=== PATIENT | female | born 1955 | race African-American/Black ===

== ENCOUNTER 2018-07-23 08:54 | Inpatient (IN) ==
--- NOTE | 2018-07-18 17:41 | EKG Report ---
Test Performed on : 07/18/2018 5:27:46 PM Test Reason : PAT Blood Pressure : / mmHG Vent. Rate : 078 BPM Atrial Rate : 078 BPM P-R Int : 168 ms QRS Dur : 080 ms QT Int : 412 ms P-R-T Axes : 046 056 021 degrees QTc Int : 469 ms Normal sinus rhythm. Possible Left atrial enlargement Borderline ECG When compared with ECG of 17-JUN-2016 18:58, No significant change was found Confirmed by Venancio AGUIAR, Ar Marie ([id number]) on 07/19/2018 8:47:00 AM
[2018-07-18 17:55] LABS: URINE SOURCE CLEAN CATCH
[2018-07-18 18:07] LABS: BASO# 0.01 X1000 (0.0-0.2); BASO% 0.1 % (0.0-0.8); EOS# 0.08 X1000 (0.0-0.7); EOS% 1.1 % (0.0-10.0); HEMOGLOBIN A1C 7.5 % (4.8-6.0); IMM GRAN# 0.02 X1000 (0.0-0.04); IMM GRAN% 0.3 % (0.0-0.5); LYMPH# 2.45 X1000 (1.2-3.4); LYMPH% 33.4 % (20.5-51.1); MCH 30.2 PG (27-31); MCHC 32.4 g/dL (33-37); MCV 93.2 FL (81-99); MONO% 5.5 % (1.7-9.3); MPV 11.3 FL (7.4-10.4); NEUT# 4.37 X1000 (1.4-6.5); NEUT% 59.6 % (42.2-75.2); PLT 211 X1000 (130-400); RBC 3.97 XMIL (4.2-5.4); RDW 12.1 % (11.5-14.5); WBC 7.33 X1000 (4.8-10.8)
[2018-07-18 18:10] LABS: BILIRUBIN URINE NEGATIVE (NEGATIVE); BLOOD URINE NEGATIVE (NEGATIVE); COLOR YELLOW; GLUCOSE URINE NEGATIVE (NEGATIVE); KETONE URINE NEGATIVE (NEGATIVE); LEUKOCYTES URINE NEGATIVE (NEGATIVE); NITRITE URINE NEGATIVE (NEGATIVE); PH URINE 5.5; PROTEIN URINE 30 mg/dL (NEGATIVE); SP GRAVITY URINE 1.037; TURBIDITY URINE CLEAR (CLEAR); UROBILINOGEN URINE 2 mg/dL (NORMAL)
[2018-07-18 18:11] LABS: UR EPITHELIAL CELLS <10 /HPF (<10); URINE BACTERIA NEGATIVE /HPF; URINE RBC <10 /HPF (<10); URINE WBC <10 /HPF (<10)
[2018-07-18 18:12] LABS: INR 0.96; PROTIME 13.6 Seconds (11.0-16.0); PTT 28.6 Seconds (22.3-41.8)
[2018-07-18 18:48] LABS: AGAP 10; BUN 18 mg/dL (8-22); CALCIUM 8.9 mg/dL (8.8-10.2); CHLORIDE 101 mmol/L (98-107); COSMO 281; CREATININE 1.1 mg/dL (0.5-0.9); ESTIMATED GFR > 60; GLUCOSE 196 mg/dL (70-104); POTASSIUM 4.5 mmol/L (3.5-5.1); SODIUM 137 mmol/L (136-145); TCO2 26 mmol/L (25-35)
[~2018-07-23 08:54] MED LIST: DIPRIVAN 1% ONE; FENTANYL ONE; VERSED ONE
[2018-07-23] MEDS ORDERED: LYRICA ONE (09:24)
[2018-07-23] MEDS ORDERED: COLACE ONE (09:24)
[2018-07-23] MEDS ORDERED: REGLAN ONE (09:24)
[2018-07-23] MEDS ORDERED: PEPCID ONE (09:24)
[2018-07-23] MEDS ORDERED: KEFZOL 1 GM/D5W 2 GM/100 ML IVPB ONE (09:25)
[2018-07-23] MEDS ORDERED: CELEBREX ONE (09:25)
[2018-07-23] MEDS ORDERED: LR 1,000 ML ONE (09:25)
[2018-07-23] MEDS ORDERED: TORADOL ONE (10:16)
[2018-07-23] MEDS ORDERED: MARCAINE 0.25% PF ONE (10:16)
[2018-07-23] MEDS ORDERED: SODIUM CHLORIDE 0.9% ONE (10:16)
[2018-07-23] MEDS ORDERED: VANCOMYCIN ONE (10:16)
[2018-07-23] MEDS ORDERED: CYKLOKAPRON 1,000 MG/NS 1,000 MG/100 ML IVPB ONE ×2 (10:16→10:17)
[2018-07-23] MEDS ORDERED: DURAMORPH ONE (10:16)
[2018-07-23] MEDS ORDERED: NEOSPORIN G.U. IRRIGANT ONE (10:17)
[2018-07-23] MEDS ORDERED: EXPAREL 1.3% ONE (10:17)
[2018-07-23] MEDS ORDERED: DIPRIVAN 1% ONE (11:26)
[2018-07-23] MEDS ORDERED: FENTANYL ONE (11:27)
[2018-07-23] MEDS ORDERED: ZOFRAN ONE (11:40)
[2018-07-23] MEDS ORDERED: OFIRMEV 1000 MG/ISOTONIC SOLN 1,000 MG/100 ML BOTTLE ONE (11:40)
[2018-07-23 12:17] LABS: URINE SOURCE CATH
[2018-07-23 12:29] LABS: BILIRUBIN URINE NEGATIVE (NEGATIVE); BLOOD URINE NEGATIVE (NEGATIVE); COLOR YELLOW; GLUCOSE URINE 300 mg/dL (NEGATIVE); KETONE URINE NEGATIVE (NEGATIVE); LEUKOCYTES URINE NEGATIVE (NEGATIVE); NITRITE URINE NEGATIVE (NEGATIVE); PH URINE 5.5; PROTEIN URINE NEGATIVE (NEGATIVE); SP GRAVITY URINE 1.014; TURBIDITY URINE CLEAR (CLEAR); UROBILINOGEN URINE NORMAL (NORMAL)
[2018-07-23 12:30] LABS: UR EPITHELIAL CELLS <10 /HPF (<10); URINE BACTERIA NEGATIVE /HPF; URINE RBC <10 /HPF (<10); URINE WBC <10 /HPF (<10)
--- NOTE | 2018-07-23 13:31 | OPERATIVE NOTE ---
PROCEDURE DATE: 07/23/2018 PREOPERATIVE DIAGNOSIS: Right knee degenerative joint disease. POSTOPERATIVE DIAGNOSIS: Right knee degenerative joint disease. PROCEDURE: Right total knee arthroplasty using [facility] size 3 femoral component, a size 4 tibial baseplate, a 12-mm articular insert, and a 32 mm patellar component. ANESTHESIA: Spinal. SURGEON: Sean Tejeda MD. CLINICAL INFORMATICS STRATEGIST: JOSEF Wade, who was present throughout the case and whose assistance was critical for exposure, preparing the bone ends for implantation, assisting with the implantation and the decision making as well as wound closure. Her assistance greatly reduced anesthesia and operative time and improved the efficiency of the OR. BLOOD LOSS: Minimal. DRAINS: Hemovac x1. DETAILS OF OPERATION: Patient was brought to the operative suite and placed in supine position. After successful administration of spinal anesthesia, a well-padded tourniquet was placed on right proximal thigh. Right lower extremity was prepped and draped in usual fashion. The leg was exsanguinated. Tourniquet insufflated to 350 torr. A longitudinal incision was made beginning at the superior pole of patella and extended distally to tibial tuberosity. Full-thickness skin flaps were elevated medially and laterally. A medial arthrotomy was made. The medial capsule was elevated off the medial tibial plateau. ACL, PCL, medial meniscus, lateral meniscus were excised. A drill was entered in the center of distal femur. Intramedullary guide was placed. Distal cutting block was then pinned in place. Distal cut made with the oscillating saw. Attention was then directed to the tibia. A drill was entered into the tibia and the line was checked with drop estrellita, referencing off the anterior cortex, tibia and the second ray of the foot and taking 3 mm off of the low side of the tibia which in this case was medially. The tibial cutting block was pinned in place. The articular surface of the tibial plateau was removed with the oscillating saw. The extension gap was measured at 12 mm. The flexion gap was then set to 21 mm to allow for the thickness of the posterior condyles of the femoral component. Once this was set, the femur was sized to size 3. A size 3 cutting block was pinned in place. Anterior cuts, chamfer cuts, and posterior condylar cuts were made with the oscillating saw. Marginal osteophytes were removed with the rongeur. A box cutting block was pinned in place. A box cut was made a box osteotome and oscillating saw. Posterior condyle osteophytes removed with the curved osteotome and rongeur. Attention was then directed to the tibia. The tibia was sized to a size 4. A size 4 guide was used for the fin punch. The tibial trial, femoral trial and 12 mm articular insert were placed and taken through range of motion and found to have excellent alignment, balancing and range of motion. Attention was then directed to patella. 9 mm of the articular surface patella removed with oscillating saw. Patella was measured to a size 32. A size 32 guide was used drill peg holes. The lateral facet was chamfered 30 to 45 degrees. Patellar trial was placed taken through range of motion and found to have excellent patellar tracking. All trials were then removed. Knee was copiously irrigated and dried, being certain all bone debris was removed. The tibial component, femoral component and patellar component were cemented into place. Excess cement being removed with a [place]. Once the cement had hardened, excess cement was again removed with an osteotome. Knee was again copiously irrigated and dried, being certain all bone and cement debris were removed with a trial. The articular insert was removed. The knee was copiously infiltrated with Exparel, including posterior capsule, anterior capsule, medial and lateral collateral ligaments, anterior musculature, and subcutaneous tissue. The definitive 12 mm articular insert was then locked into place. A drain was placed exiting superolaterally and buried in the lateral gutter. The knee was again copiously irrigated with normal saline containing irrigant and Vashe irrigation. The tourniquet was deflated. Hemostasis was obtained with electrocautery. The medial arthrotomy was closed with 0 V-Loc. The skin edges approximated with 2-0 Vicryl, skin was closed with Prineo and a sterile dressing was applied. The patient tolerated the procedure well without complication. At the end the procedure, all counts were correct x2. The patient was transferred to the recovery room in stable condition. cc: Sean Tejeda MD
[2018-07-23] MEDS ORDERED: NS 1,000 ML ONE (13:41)
--- NOTE | 2018-07-23 14:00 | Diag Imaging Result Doc PS360 ---
KNEE 1-2 VIEWS-RIGHT - 07/23/2018 INDICATION: post op TECHNIQUE: Two views COMPARISON: 01/21/2018 FINDINGS: There has been right total knee arthroplasty with patellar resurfacing. Alignment is anatomic. No hardware fracture or loosening. IMPRESSION: No complication. Electronically signed by Vinod Jackson 07/23/2018 1:58 PM
[2018-07-23] MEDS ORDERED: ZOFRAN IV PRN (15:15)
[2018-07-23] MEDS ORDERED: MILK OF MAGNESIA PO PRN (15:15)
[2018-07-23] MEDS ORDERED: OXY IR PO PRN (15:15)
[2018-07-23] MEDS ORDERED: MORPHINE IV PRN ×3 (15:15)
[2018-07-23] MEDS ORDERED: MIRALAX PO PRN (15:25)
[2018-07-23] MEDS ORDERED: ALBUTEROL NEB INH PRN (15:25)
[2018-07-23] MEDS: GLUCOPHAGE PO SCH (16:42)
[2018-07-23] MEDS: TYLENOL PO SCH ×2 (16:42→22:52)
[2018-07-23] MEDS: ULTRAM PO SCH (16:43)
[2018-07-23] MEDS: NS 1,000 ML IV SCH (16:47)
[2018-07-23] MEDS: KEFZOL 2 GM/D5W 2 GM/50 ML IVPB IV SCH ×2 (17:56→18:44)
[2018-07-23] MEDS: OXY IR PO PRN ×2 (18:57→22:41)
[2018-07-23] MEDS: ADVAIR 250/50 DISKUS INH SCH (20:14)
[2018-07-23] MEDS: DESYREL PO SCH (22:52)
[2018-07-23] MEDS: AMBIEN PO SCH (22:52)
[2018-07-23] MEDS: CELEBREX PO SCH (22:52)
[2018-07-23] MEDS: ZANTAC PO SCH (22:53)
[2018-07-23] MEDS: SEROQUEL PO SCH (22:53)
[2018-07-23] MEDS: COLACE PO SCH (22:53)
[2018-07-23] MEDS: PERIDEX MT SCH (22:54)
[2018-07-24] MEDS: ULTRAM PO SCH ×5 (00:20→22:42)
[2018-07-24] MEDS: KEFZOL 2 GM/D5W 2 GM/50 ML IVPB IV SCH (02:35)
[2018-07-24] MEDS: NS 1,000 ML IV SCH ×2 (02:39→08:13)
[2018-07-24 06:01] LABS: HEMATOCRIT 33.7 % (37.0-47.0); HEMOGLOBIN 10.7 g/dL (12.0-16.0)
[2018-07-24 06:18] LABS: AGAP 10; BUN 13 mg/dL (8-22); CALCIUM 7.6 mg/dL (8.8-10.2); CHLORIDE 103 mmol/L (98-107); COSMO 286; CREATININE 0.9 mg/dL (0.5-0.9); ESTIMATED GFR > 60; GLUCOSE 278 mg/dL (70-104); POTASSIUM 4.9 mmol/L (3.5-5.1); SODIUM 138 mmol/L (136-145); TCO2 25 mmol/L (25-35)
[2018-07-24] MEDS: LINZESS PO SCH (06:34)
[2018-07-24] MEDS: PRILOSEC PO SCH (06:34)
[2018-07-24] MEDS: TYLENOL PO SCH ×4 (06:34→22:31)
--- NOTE | 2018-07-24 07:35 | DISCHARGE SUMMARY ---
ADMISSION DATE: 07/23/2018 DISCHARGE DATE: 07/24/2018 DISCHARGE DIAGNOSIS: Right knee degenerative joint disease status post right total knee arthroplasty. DISCHARGE MEDICATIONS: See discharge medication list. DISPOSITION: The patient discharged home with home health physical therapy. She is instructed to return for any signs or symptoms of infection or deep venous thrombosis. Instructed to return to see Dr. Tejeda next . HOSPITAL COURSE: On the day of admission, patient underwent a right total knee arthroplasty. Her postoperative course was unremarkable. At discharge, she is afebrile tolerating a regular diet ambulating with therapy. Her wound is clean, dry, intact without sign of infection. Her hematocrit is 33.7. Her hemoglobin is 10.7. She has had 290 out from her drain, and 100 over the last day. She is discharged home in stable condition, and instructed to follow up as described above. cc: Sean Tejeda MD [facility]
[2018-07-24] MEDS: ADVAIR 250/50 DISKUS INH SCH ×2 (07:50→20:13)
[2018-07-24] MEDS: ESTRACE PO SCH (08:10)
[2018-07-24] MEDS: CYMBALTA PO SCH (08:10)
[2018-07-24] MEDS: COLACE PO SCH ×2 (08:10→22:31)
[2018-07-24] MEDS: ZANTAC PO SCH ×2 (08:10→22:32)
[2018-07-24] MEDS: CELEBREX PO SCH ×2 (08:10→22:30)
[2018-07-24] MEDS: GLUCOPHAGE PO SCH ×2 (08:10→16:23)
[2018-07-24] MEDS: PERIDEX MT SCH ×2 (08:10→22:34)
[2018-07-24] MEDS: OXY IR PO PRN ×2 (08:11→18:26)
[2018-07-24] MEDS: NORVASC PO SCH (08:20)
[2018-07-24] MEDS ORDERED: LIPITOR PO SCH (21:00)
--- NOTE | 2018-07-24 22:07 | PROGRESS NOTE ---
DATE: 07/24/2018 SUBJECTIVE: Madeline Li is a 62-year-old female who had a left total knee the yesterday. We were going to send her home today, but she did progress well with physical therapy. We are going to keep her and change her over to a full admission. OBJECTIVE: She has pain with range of motion of her knee. Her wound is clean, dry, intact without sign of infection. ASSESSMENT: Stable total knee arthroplasty. PLAN: She is going to continue working with therapy. Hopefully, she can be discharged to home tomorrow. If not, we may need to consider rehab placement. cc: Sean Tejeda MD
[2018-07-24] MEDS: DESYREL PO SCH (22:32)
[2018-07-24] MEDS: AMBIEN PO SCH (22:33)
[2018-07-24] MEDS: SEROQUEL PO SCH (22:34)
[2018-07-25] MEDS: ULTRAM PO SCH ×2 (03:15→09:35)
[2018-07-25 05:57] LABS: HEMATOCRIT 30.2 % (37.0-47.0); HEMOGLOBIN 9.9 g/dL (12.0-16.0)
[2018-07-25] MEDS: LINZESS PO SCH (06:34)
[2018-07-25] MEDS: TYLENOL PO SCH (06:34)
[2018-07-25] MEDS: PRILOSEC PO SCH (06:34)
[2018-07-25] MEDS: ADVAIR 250/50 DISKUS INH SCH (07:28)
[2018-07-25 07:36] VITALS: BP 163/71
[2018-07-25] MEDS: PERIDEX MT SCH (09:32)
[2018-07-25] MEDS: COLACE PO SCH (09:32)
[2018-07-25] MEDS: CELEBREX PO SCH (09:32)
[2018-07-25] MEDS: GLUCOPHAGE PO SCH (09:32)
[2018-07-25] MEDS: ESTRACE PO SCH (09:32)
[2018-07-25] MEDS: ZANTAC PO SCH (09:32)
[2018-07-25] MEDS: CYMBALTA PO SCH (09:32)
[2018-07-25] MEDS: NORVASC PO SCH (09:32)
[2018-07-25] MEDS: NS 1,000 ML IV SCH (11:06)
== END 2018-07-25 15:29 | disposition home health service (06) | DRG 470 ==
LOC: OR 08:54 → 4N 08:54
PROVIDERS: ADMIT Orthopaedic Surgery; ATTEND Orthopaedic Surgery
CPT/HCPCS: 73560; 80048; 81001; 82040; 82948; 83036; 85014; 85018; 85025; 85610; 85730; 86850; 86900; 86901; 93005; 93010; 94640; 94761; 94799; 97110; 97116; 97162; 97530; A9270; C9290; J0131; J0690; J1885; J2250; J2270; J2274; J2275; J2405; J3010; J3370; J7030; J7120; Q9974; S0020; XXXXX

== ENCOUNTER 2018-10-29 05:30 | Day surgery (SDC) ==
--- NOTE | 2018-10-23 09:55 | EKG Report ---
Test Performed on : 10/23/2018 09:50:54 AM Test Reason : PAT Blood Pressure : / mmHG Vent. Rate : 086 BPM Atrial Rate : 086 BPM P-R Int : 162 ms QRS Dur : 074 ms QT Int : 380 ms P-R-T Axes : 049 062 035 degrees QTc Int : 454 ms Normal sinus rhythm. Possible Left atrial enlargement Borderline ECG When compared with ECG of 18-JUL-2018 17:27, No significant change was found Confirmed by Sophie Eisenberg MD ([id number]) on 10/28/2018 9:28:01 PM
[2018-10-23 10:30] LABS: URINE SOURCE CLEAN CATCH
[2018-10-23 10:36] LABS: BASO# 0.01 X1000 (0.0-0.2); BASO% 0.1 % (0.0-0.8); EOS# 0.16 X1000 (0.0-0.7); EOS% 2.1 % (0.0-10.0); HEMATOCRIT 38.4 % (37.0-47.0); HEMOGLOBIN 12.3 g/dL (12.0-16.0); LYMPH# 2.18 X1000 (1.2-3.4); MCH 28.9 PG (27-31); MCV 90.4 FL (81-99); MONO# 0.44 X1000 (0.11-0.59); MONO% 5.9 % (1.7-9.3); NEUT# 4.73 X1000 (1.4-6.5); NEUT% 62.9 % (42.2-75.2); PLT 241 X1000 (130-400); RBC 4.25 XMIL (4.2-5.4); RDW 13.2 % (11.5-14.5); WBC 7.52 X1000 (4.8-10.8)
[2018-10-23 10:43] LABS: BILIRUBIN URINE NEGATIVE (NEGATIVE); BLOOD URINE NEGATIVE (NEGATIVE); COLOR YELLOW; GLUCOSE URINE NEGATIVE (NEGATIVE); INR 1.02; KETONE URINE NEGATIVE (NEGATIVE); LEUKOCYTES URINE NEGATIVE (NEGATIVE); NITRITE URINE NEGATIVE (NEGATIVE); PROTEIN URINE TRACE mg/dL (NEGATIVE); PROTIME 13.5 Seconds (11.0-16.0); TURBIDITY URINE CLEAR (CLEAR); UROBILINOGEN URINE NORMAL (NORMAL)
[2018-10-23 10:44] LABS: PTT 28.8 Seconds (22.3-41.8)
[2018-10-23 10:45] LABS: UR EPITHELIAL CELLS <10 /HPF (<10); URINE BACTERIA NEGATIVE /HPF; URINE RBC <10 /HPF (<10); URINE WBC <10 /HPF (<10)
[2018-10-23 11:02] LABS: HEMOGLOBIN A1C 7.8 % (4.8-6.0)
[2018-10-23 11:17] LABS: CALCIUM 8.7 mg/dL (8.8-10.2); CREATININE 1.2 mg/dL (0.5-0.9); POTASSIUM 4.6 mmol/L (3.5-5.1)
[2018-10-29] MEDS ORDERED: CELEBREX ONE (06:12)
[2018-10-29] MEDS ORDERED: COLACE ONE (06:12)
[2018-10-29] MEDS ORDERED: REGLAN ONE (06:12)
[2018-10-29] MEDS ORDERED: PEPCID ONE (06:12)
[2018-10-29] MEDS ORDERED: LYRICA ONE (06:12)
[2018-10-29] MEDS ORDERED: LR 1,000 ML ONE (06:13)
[2018-10-29] MEDS ORDERED: KEFZOL 1 GM/D5W 2 GM/100 ML IVPB ONE (06:13)
[2018-10-29] MEDS ORDERED: DUONEB (A & A) INH ONE (06:15)
[2018-10-29] MEDS ORDERED: QUELICIN (DOSE) ONE (06:46)
[2018-10-29] MEDS ORDERED: DIPRIVAN 1% ONE (06:46)
[2018-10-29] MEDS ORDERED: XYLOCAINE-MPF 2% ONE (06:46)
[2018-10-29] MEDS ORDERED: TORADOL ONE (06:47)
[2018-10-29] MEDS ORDERED: DURAMORPH ONE (06:47)
[2018-10-29] MEDS ORDERED: VANCOMYCIN ONE (06:48)
[2018-10-29] MEDS ORDERED: SENSORCAINE-MPF 0.5%/EPI 1:200,000 ONE (06:48)
[2018-10-29] MEDS ORDERED: SODIUM CHLORIDE 0.9% ONE (06:48)
[2018-10-29] MEDS ORDERED: NEOSPORIN G.U. IRRIGANT ONE (06:48)
[2018-10-29] MEDS ORDERED: EXPAREL 1.3% ONE (06:48)
[2018-10-29] MEDS ORDERED: FENTANYL ONE (06:49)
[2018-10-29] MEDS: CYKLOKAPRON 1,000 MG/NS 2,000 MG/200 ML IVPB ONE ×2 (07:30→09:09)
[2018-10-29] MEDS ORDERED: SUFENTA ONE (07:49)
[2018-10-29] MEDS ORDERED: LOPRESSOR ONE (08:18)
[2018-10-29 08:25] LABS: URINE SOURCE CATH
[2018-10-29 08:34] LABS: BILIRUBIN URINE NEGATIVE (NEGATIVE); BLOOD URINE NEGATIVE (NEGATIVE); COLOR YELLOW; GLUCOSE URINE NEGATIVE (NEGATIVE); KETONE URINE NEGATIVE (NEGATIVE); LEUKOCYTES URINE NEGATIVE (NEGATIVE); NITRITE URINE NEGATIVE (NEGATIVE); PROTEIN URINE TRACE mg/dL (NEGATIVE); SP GRAVITY URINE 1.028; TURBIDITY URINE CLEAR (CLEAR); UROBILINOGEN URINE 2 mg/dL (NORMAL)
[2018-10-29 08:36] LABS: UR EPITHELIAL CELLS <10 /HPF (<10); URINE BACTERIA NEGATIVE /HPF; URINE RBC <10 /HPF (<10); URINE WBC <10 /HPF (<10)
[2018-10-29] MEDS ORDERED: DECADRON ONE (08:50)
[2018-10-29] MEDS ORDERED: ZOFRAN ONE (08:50)
[2018-10-29] MEDS ORDERED: NS 1,000 ML ONE (09:38)
[2018-10-29] MEDS: DILAUDID ONE ×10 (10:33→15:39)
--- NOTE | 2018-10-29 10:44 | OPERATIVE NOTE ---
PROCEDURE DATE: 10/29/2018 PREOPERATIVE DIAGNOSIS: Left knee degenerative joint disease. POSTOPERATIVE DIAGNOSIS: Left knee degenerative joint disease. PROCEDURE: Left total knee arthroplasty using [facility] size 5 femoral component, size 4 tibial base plate, a 14 mm articular insert, and a 35 mm patellar component. ANESTHESIA: Spinal. SURGEON: Sean Tejeda MD NURSE SUPERVISOR: VESNA Mcknight; who was present throughout the case and whose assistance was critical for success of the case. BLOOD LOSS: Minimal. DRAINS: Hemovac x1. TOURNIQUET TIME: Approximately an hour and half. DESCRIPTION OF PROCEDURE: The patient was brought to the operative suite and placed in supine position. After successful administration of general anesthesia, a well-padded tourniquet was placed on the left proximal thigh, left lower extremity was prepped and draped in the usual sterile fashion. Leg was exsanguinated. Tourniquet insufflated to 350 torr. A longitudinal incision was made beginning 3 fingerbreadths superior to the superior pole of the patella and extending distally to the tibial tuberosity. The flap was elevated medially and then a medial arthrotomy was made and the medial capsule was elevated off the medial tibial plateau. The ACL, PCL, medial meniscus, and lateral meniscus were excised. A drill was entered in the center of the distal femur, intramedullary guide was placed, distal cutting block was pinned in place distal cut was made with oscillating saw. Attention was then directed to the tibia. It was entered with a drill and then using intramedullary guide and using the drop estrellita for checking the alignment, taking 4 mm off the low side of the tibia which in this case was medially the tibial cutting block was pinned into place and the articular surface of the tibial plateau was removed with oscillating saw. Extension gap was checked and found to be tight medially, a medial release was performed then it was balanced medially and laterally with flexion, however, with gap balancing her knee actually ended up with internal rotation on the femur. Therefore, we abandoned the gap balancing technique and used to standard 3 degrees of external rotation. The femur was sized to a size 5. A size 5 cutting block was pinned into place. Anterior cuts, chamfer cuts, and posterior condylar cuts were made with the oscillating saw, marginal osteophytes were removed with rongeur. Box cutting block was pinned into place, a box cut was made with a box osteotome and oscillating saw posterior condyle osteophytes removed with the curved osteotome and rongeur. The tibial was then sized to a size 4, size 4 guide was used for the fin punch the tibial trial, femoral trial, and a 14 mm articular insert placed taken through range of motion, found to have excellent alignment, balance, and range of motion. Attention was directed to the patella, 9 mm of the articular surface of patella removed with oscillating saw. Patella sized to size 35, a size 35 guide was used to drill peg holes. The lateral facet was chamfered 30 to 45 degrees. Patella trial was placed taken through range of motion and found to have excellent patella tracking. The patellar trial was removed and then the knee was copiously irrigated and dried, being certain all bone debris was removed. The tibial component, femoral component, and patellar component were cemented into place, excess cement being removed with a [place]. Once the cement had set, the excess cement was again removed with an osteotome. The knee was again copiously irrigated and dried, being certain all bone and cement debris were removed. The trial articular insert was removed. The knee was copiously infiltrated with Exparel, including the posterior capsule, anterior capsule, medial and lateral collateral ligaments, anterior musculature, and subcutaneous tissue. The tourniquet was deflated and hemostasis was obtained with electrocautery. The definitive 14 mm articular insert was placed and then a drain was placed exiting superior laterally and buried in the lateral gutter. The knee was again copiously irrigated with normal saline containing irrigant and Vashe irrigation. The medial arthrotomy was then closed with #1 Vicryl, skin edge reapproximated with 2-0 Vicryl. Skin was closed with Prineo and a sterile dressing was applied. The patient tolerated the procedure well without complication. At the end of the procedure, all counts were correct x2. The patient was transferred to the recovery room in stable condition. cc: Sean Tejeda MD
[2018-10-29] MEDS ORDERED: ZOFRAN IV PRN (12:15)
[2018-10-29] MEDS ORDERED: OXY IR PO PRN (12:15)
[2018-10-29] MEDS ORDERED: MORPHINE IV PRN ×3 (12:15)
[2018-10-29] MEDS ORDERED: ZOFRAN ODT PO PRN (12:15)
[2018-10-29] MEDS ORDERED: MILK OF MAGNESIA PO PRN (12:15)
[2018-10-29] MEDS: ULTRAM PO SCH ×2 (14:42→20:26)
[2018-10-29] MEDS: KEFZOL 2 GM/D5W 2 GM/50 ML IVPB IV SCH ×2 (14:42→23:31)
[2018-10-29] MEDS: TYLENOL PO SCH ×2 (14:42→20:25)
[2018-10-29] MEDS: NS 1,000 ML IV SCH ×2 (14:48→20:24)
[2018-10-29] MEDS: OXY IR PO PRN ×2 (18:12→23:30)
[2018-10-29] MEDS ORDERED: MIRALAX PO PRN (18:50)
[2018-10-29] MEDS ORDERED: ADVAIR 250/50 DISKUS INH PRN (18:50)
[2018-10-29] MEDS ORDERED: LINZESS PO PRN (18:50)
[2018-10-29] MEDS ORDERED: ALBUTEROL NEB INH PRN (18:50)
[2018-10-29] MEDS: GLUCOPHAGE PO SCH (20:24)
[2018-10-29] MEDS: CELEBREX PO SCH (20:24)
[2018-10-29] MEDS: LYRICA PO SCH (20:24)
[2018-10-29] MEDS: ZANTAC PO SCH (20:24)
[2018-10-29] MEDS: COLACE PO SCH (20:24)
[2018-10-29] MEDS ORDERED: SEROQUEL PO SCH (21:00)
[2018-10-29] MEDS ORDERED: AMBIEN PO SCH (21:00)
[2018-10-29] MEDS: PERIDEX MT SCH (21:00)
[2018-10-30] MEDS: TYLENOL PO SCH ×2 (03:49→09:12)
[2018-10-30] MEDS: ULTRAM PO SCH ×2 (03:50→09:12)
[2018-10-30 05:39] LABS: HEMATOCRIT 32.6 % (37.0-47.0); HEMOGLOBIN 10.3 g/dL (12.0-16.0)
[2018-10-30 05:57] LABS: AGAP 9; BUN 14 mg/dL (8-22); CALCIUM 8.4 mg/dL (8.8-10.2); CHLORIDE 101 mmol/L (98-107); COSMO 281; ESTIMATED GFR > 60; GLUCOSE 222 mg/dL (70-104); POTASSIUM 4.7 mmol/L (3.5-5.1); SODIUM 137 mmol/L (136-145); TCO2 27 mmol/L (25-35)
[2018-10-30] MEDS ORDERED: XARELTO PO SCH (06:00)
[2018-10-30] MEDS: OXY IR PO PRN (06:41)
[2018-10-30] MEDS ORDERED: PRILOSEC PO SCH (07:00)
[2018-10-30] MEDS ORDERED: DECADRON IV ONE (09:00)
[2018-10-30] MEDS ORDERED: NORVASC PO SCH (09:00)
[2018-10-30] MEDS ORDERED: ESTRACE PO SCH (09:00)
[2018-10-30] MEDS ORDERED: CYMBALTA PO SCH (09:00)
[2018-10-30] MEDS ORDERED: PEPCID PO SCH (09:00)
[2018-10-30] MEDS: ZANTAC PO SCH (09:11)
[2018-10-30] MEDS: COLACE PO SCH (09:12)
[2018-10-30] MEDS: PERIDEX MT SCH (09:12)
[2018-10-30] MEDS: GLUCOPHAGE PO SCH (09:12)
[2018-10-30] MEDS: LYRICA PO SCH (09:12)
[2018-10-30] MEDS: CELEBREX PO SCH (09:13)
[2018-10-30] MEDS ORDERED: HUMULIN R SUBQ SCH (11:00)
[2018-10-30 11:44] VITALS: BP 147/67
[2018-10-30] MEDS ORDERED: BENADRYL PO ONE (12:54)
--- NOTE | 2018-10-30 15:07 | DISCHARGE SUMMARY ---
ADMISSION DATE: 10/29/2018 DISCHARGE DATE: 10/30/2018 DISCHARGE DIAGNOSIS: Left knee degenerative joint disease status post left total knee arthroplasty. DISCHARGE MEDICATIONS: See discharge med list. DISPOSITION: The patient is discharged home with home health physical therapy. Instructed to return for any signs or symptoms of infection or deep venous thrombosis. Instructed to return to see Dr. Tejeda next . HOSPITAL COURSE: On the day of admission, patient underwent a left total knee arthroplasty. Her postoperative course was unremarkable. At discharge, she is afebrile, tolerating a regular diet, ambulating well with physical therapy. Her wound is clean, dry and intact without sign of infection. She is discharged home in stable condition with instruction to follow up as described above. cc: Sean Tejeda MD
[2018-10-30] MEDS ORDERED: LIPITOR PO SCH (21:00)
== END 2018-10-30 14:06 | disposition home or self-care (01) ==
LOC: 4N 05:30 → OR 05:30
PROVIDERS: ATTEND Orthopaedic Surgery